=== PATIENT | female | born 1955 | race Caucasian/White ===

== ENCOUNTER 2018-04-16 09:00 | Inpatient (IN) ==
--- NOTE | 2018-01-26 10:45 | PAT Medication Instructions ---
Medication Instructions Date of Service January 26, 2018 Home Medications Sulfa Crystals 1 dose PO DAILY clonazepam 1 mg PO BID esomeprazole magnesium [Nexium] 40 mg PO QAM folic acid 1 mg PO QAM modafinil 200 mg PO QAM rosuvastatin [Crestor] 10 mg PO HS verapamil 80 mg PO BID etanercept [Enbrel SureClick] 50 mg SUBCUT WK STOP taking 2 weeks before surgery Sulfa Crystals 1 dose PO DAILY etanercept [Enbrel SureClick] 50 mg SUBCUT WK DO NOT take the morning of surgery folic acid 1 mg PO QAM modafinil 200 mg PO QAM Take morning of surgery With a small sip of water, OTHERWISE NOTHING TO EAT OR DRINK AFTER MIDNIGHT: verapamil 80 mg PO BID esomeprazole magnesium [Nexium] 40 mg PO QAM clonazepam 1 mg PO BID (stop 4 hours before surgery) Take evening before surgery verapamil 80 mg PO BID rosuvastatin [Crestor] 10 mg PO HS clonazepam 1 mg PO BID Other Notes If you have any questions please call us at [phone] or [phone] or [phone] or [phone]
--- NOTE | 2018-01-27 14:39 | Anesthesiology Consultation ---
Date of Service January 27, 2018 Assessment & Plan (1) Encounter for pre-operative examination: Plan: Note sent to PCP about decreased K+ of 2.7. (01/28/18) Note received from PCP. Patient was started on KCl 20meq TID x 1 day, then 20meq daily from there on out. She is to repeat labs in 3 days. Will wait to see new test results. (02/01/18) Patient cancelled her surgery as of 02/08/18 due to illness. * Chart Review Chart Review: Patient seen in Pre Admission Testing Consults Requested none Teaching & Discussion Pre-Anesthesia Teaching/Discussion Notes: Instructed NPO after midnight before surgery, except medications with 15 cc of water. Medication instructions provided according to the PAT guidelines. History Surgery Operation Date: 02/12/18 07:45 Proposed Procedures p L5-S1 Removal of Hardware, L4-L5 Decompression and Fusion - Reddy Marcano, Height/Weight Height: 5 ft 1 in Weight: 70.6 kg Allergies Allergy/AdvReac Type Severity Reaction Status Date / Time midazolam Allergy Unknown "HYPES ME Verified 01/21/18 12:11 UP" tetanus toxoid, adsorbed Allergy Unknown "ARM Verified 01/21/18 12:11 SWELLED AND FEVER" codeine AdvReac Unknown NAUSEA Verified 01/21/18 12:11 diazepam AdvReac Unknown "GET HYPER" Verified 01/21/18 12:11 melatonin AdvReac Unknown "KEEPS ME Verified 01/21/18 12:11 AWAKE" pseudoephedrine AdvReac Unknown "BP Verified 01/21/18 12:11 ELEVATED" acetaminophen AdvReac Nausea Verified 01/21/18 12:11 Medications Home Medications Medication Instructions Recorded Confirmed Last Taken Sulfa Crystals 1 dose PO DAILY 01/21/18 Unknown clonazepam 1 mg PO BID 01/21/18 01/21/18 Unknown esomeprazole magnesium [Nexium] 40 mg PO QAM 01/21/18 01/21/18 Unknown folic acid 1 mg PO QAM 01/21/18 01/21/18 Unknown modafinil 200 mg PO QAM 01/21/18 01/27/18 Unknown rosuvastatin [Crestor] 10 mg PO HS 01/21/18 01/21/18 Unknown verapamil 80 mg PO BID 01/21/18 01/27/18 Unknown etanercept [Enbrel SureClick] 50 mg SUBCUT WK 01/27/18 01/27/18 Unknown Past Medical History Medical History Aspiration into airway Chronic back pain Degenerative disc disease LUMBAR Depression GERD (gastroesophageal reflux disease) Heart palpitations Hyperlipidemia Nausea and vomiting after administration of anesthetic agent Osteoarthritis Panic disorder Rheumatoid arthritis Past Surgical History Surgical History Fusion of spine LUMBAR History of bilateral tubal ligation History of carpal tunnel release B/L History of cholecystectomy History of dilatation and curettage History of laparoscopy LYSIS OF ADHESIVES History of repair of rotator cuff LEFT Past Anesthesia History No Hx of Anesthesia Complications (Does tend to wake up with anesthesia and has PONV) and No Family Hx of Anesthesia Complications History of PONV Yes Motion Sickness Screening History of Motion Sickness: No Social History Smoking Status: Current every day smoker tobacco type: cigarettes Smoking cigarettes per day: HX OF 1PPD X30+ YEARS Do You Dip or Chew Tobacco: No Hx Alcohol Use: No Alcohol Intake Frequency Comment: 0 Hx Substance Use: No substance use type: does not use Exercise / Class Metabolic Activity III < 4 Walking/Shop/Light housework (Limited due to pain. Able to climb FOS. Denies CP or SOB.) Review of Systems Patient denies chest pain, shortness of breath, dyspnea on exertion, reflux ( controlled by medicine), wheezing. +cough (attributes to smoking) + palpitations +joint pain (back) Physical Exam Vital Signs BP: 127/76 P: 80 R: 20 T: 98.6 SPO2: 97% on RA ENMT Thyromental Distance: < 3.5 Finger Breadths (3) Mallampati Class: II +2 tonsillar hypertrophy Neck normal visual inspection and trachea midline; neck extension not limited Respiratory normal respiratory effort Auscultation: lungs clear to auscultation bilaterally Cardiovascular Rate/Rhythm: regular rate and regular rhythm Heart Sounds: no murmur Vessels: no carotid bruit Neurologic moves all extremities Psychiatric Orientation: alert and oriented x 3 Testing Electrocardiogram Date: 01/27/18 Findings: + NSR @ (70) and + no change from (08/11/13) Chest X-Ray Date: 01/27/18 Findings: + NAD Echocardiogram Date: 09/25/17 EF: 55% Trivial tricuspid/mild pulmonic insufficiency with normal pulmonary artery pressures. Otherwise normal transthoracic echocardiogram. Cervical Spine Date: 01/27/18 FINDINGS: The cervical spine is visualized from C1 through the superior endplate of T1. There is no fracture. No subluxation. Mild disc space narrowing at C5-C6 with small endplate osteophytes. Alignment remains intact throughout flexion and extension. Prevertebral soft tissues and the atlantodens interval are intact. IMPRESSION: No fracture or subluxation within the cervical spine. Alignment remains intact throughout flexion and extension. Laboratory Results 01/27/18 15:25 01/27/18 15:25 Blood Type A Negative 01/27/18 15: Antibody Screen NEGATIVE 01/27/18 15:25 PT 10.7 Seconds (9.0-12.0) 01/27/18 15: INR 1.0 (0.9-1.1) 01/27/18 15: APTT 27.8 Seconds (21.0-31.0) 01/27/18 15:25 Urine Color Yellow 01/27/18 15:25 Urine Appearance Clear (Clear) 01/27/18 15:25 Urine pH 7.0 (4.5-7.5) 01/27/18 15:25 Ur Specific [place] 1.003 (1.000-1.030) 01/27/18 15:25 Urine Protein Negative (Negative) 01/27/18 15:25 Urine Glucose (UA) Negative (Negative) 01/27/18 15:25 Urine Ketones Negative (Negative) 01/27/18 15:25 Urine Nitrite Negative (Negative) 01/27/18 15:25 Ur Leukocyte Esterase Negative (Negative) 01/27/18 15:25
[2018-01-27 16:15] LABS: Basophils # (auto) 0.07 K/uL (0-0.2); Basophils % (auto) 0.5 %; Eosinophils # (auto) 0.11 K/uL (0-0.5); Eosinophils % (auto) 0.8 %; Hematocrit (blood only) 44.9 % (37-47); Hemoglobin 15.1 g/dL (12.0-16.0); Immature Granulocytes # (auto) 0.05 K/uL (0.00-0.02); Immature Granulocytes % (auto) 0.4 %; Lymphocytes # (auto) 3.06 K/uL (1.2-3.4); Lymphocytes % (auto) 23.3 %; Mean Corpuscular Hgb Conc 33.6 g/dL (32-36); Mean Corpuscular Volume 94.3 fL (80-100); Mean Platelet Volume 11.5 fL (7.4-10.4); Monocytes % (auto) 6.8 %; Neutrophils # (auto) 8.96 K/uL (1.4-6.5); Neutrophils % (auto) 68.2 %; Platelet Count 388 K/uL (130-400); RDW Coefficient of Variation 13.5 % (11.5-14.5); RDW Standard Deviation 46.6 fL (36.4-46.3); Red Blood Count 4.76 M/uL (4.2-5.4); White Blood Count 13.15 K/uL (4.8-10.8)
[2018-01-27 16:23] LABS: BUN Creatinine Ratio 4.9 (10-20); Calcium 9.4 mg/dl (8.5-10.1); Creatinine Clr Calc Pharmacy 54.3 ml/min; Est GFR (African American) 74.3; Est GFR (Non-African American) 64.1; Potassium 2.7 mmol/L (3.5-5.1)
[2018-01-27 16:27] LABS: Appearance Urine Clear (Clear); Bilirubin Urine Negative (Negative); Blood Urine Negative (Negative); Color Urine Yellow; Glucose Urine UA Negative (Negative); Ketones Urine Negative (Negative); Leukocyte Esterase Urine Negative (Negative); Nitrite Urine Negative (Negative); Protein Urine Negative (Negative); Specific Gravity Urine 1.003 (1.000-1.030); Urobilinogen Urine Negative (Negative)
[2018-01-27 16:31] LABS: Partial Thromboplastin Ratio 1.1; Partial Thromboplastin Time 27.8 Seconds (21.0-31.0); Prothrombin Time 10.7 Seconds (9.0-12.0)
--- NOTE | 2018-01-27 16:32 | XRay Report ---
CERVICAL SPINE 3 views with flexion and extension HISTORY: Preop, Rheumatoid Arthritis COMPARISON: None. FINDINGS: The cervical spine is visualized from C1 through the superior endplate of T1. There is no f racture. No subluxation. Mild disc space narrowing at C5-C6 with small endplate osteophytes. Alignme nt remains intact throughout flexion and extension. Prevertebral soft tissues and the atlantodens int erval are intact. IMPRESSION: No fracture or subluxation within the cervical spine. Alignment remains intact throughout flexion and extension. Electronically signed by: Osman Holman M.D. 01/27/2018 4:31 PM
--- NOTE | 2018-01-27 16:40 | XRay Report ---
XR chest Pre-admission PA/Lat CLINICAL HISTORY: 62 years-old Female presenting with preoperative assessment. TECHNIQUE: PA and lateral views of the chest were obtained. COMPARISON: 08/11/2013. FINDINGS: Cardiomediastinal silhouette normal. Lungs and pleural spaces clear. Degenerative changes of the thor acic spine. Cholecystectomy clips noted. IMPRESSION: 1. No acute cardiopulmonary disease. Electronically signed by: Estevan Miranda M.D. 01/27/2018 4:38 PM
[~2018-04-16 09:00] MED LIST: ACETAMINOPHEN 500 MG TAB PO SCH; CEFAZOLIN 1000MG 1,000 MG/7.5 ML SYR IV SCH; CeleBREX 200 MG CAP PO SCH; GABAPENTIN 300 MG x 2 PO SCH; LR 15ML/HR IV SCH
[2018-04-16] MEDS ORDERED: HYDROmorphone INJ 2 MG/ML SYR/VIAL ONE (09:46)
[2018-04-16] MEDS ORDERED: PROPOFOL IV EMULSION 10 MG/ML 20 ML VIAL IV ONE (09:47)
[2018-04-16] MEDS ORDERED: DEXAMETHASONE SOD INJ 4 MG/ML VIAL ONE (09:47)
[2018-04-16] MEDS ORDERED: NEOSTIGMINE METHYLSULFATE 1 MG/ML 10ML VIAL ONE (09:47)
[2018-04-16] MEDS ORDERED: GLYCOPYRROLATE 0.2 MG/ML VIAL ONE (09:47)
[2018-04-16] MEDS ORDERED: ONDANSETRON INJ 2 MG/ML 2 ML VIAL ONE ×2 (09:47→16:23)
[2018-04-16] MEDS ORDERED: fentaNYL citrate 100 MCG/2 ML VIAL ONE ×2 (09:47→13:46)
[2018-04-16] MEDS ORDERED: LIDOCAINE HCL 2% 2 ML VIAL/AMP(20MG/ML) INFIL ONE (09:47)
[2018-04-16] MEDS ORDERED: ROCURONIUM BROMIDE 10 MG/ML 5 ML VIAL ONE (09:47)
[2018-04-16] MEDS ORDERED: ALBUTEROL 0.083% NEBU SOLN 3 ML VIAL NEB STA (11:20)
--- NOTE | 2018-04-16 12:57 | History & Physical Bridge Note ---
Date of Service April 16, 2018 History & Physical Bridge Note I have examined the patient, reviewed the History & Physical and in the interval since the performance of the History & Physical I have noted the following changes of clinical significance: no changes noted
--- NOTE | 2018-04-16 12:58 | History & Physical Report ---
Date of Service April 16, 2018 Assessment & Plan (1) Neurogenic claudication due to lumbar spinal stenosis: Removal of hardware L5-S1 fusion L4-5 Present on Admission?: Yes History of Present Illness Chief Complaint: Back and leg pain Primary Care Provider: Landen Galdamez This is a 63-year-old female presents with chronic persistent back and leg pain. After failing extensive course of nonoperative care she would like to pursue surgical intervention. Allergies Allergy/AdvReac Type Severity Reaction Status Date / Time midazolam Allergy Unknown "HYPES ME Verified 04/16/18 10:17 UP" tetanus toxoid, adsorbed Allergy Unknown "ARM Verified 04/16/18 10:17 SWELLED AND FEVER" codeine AdvReac Unknown NAUSEA Verified 04/16/18 10:17 diazepam AdvReac Unknown "GET HYPER" Verified 04/16/18 10:17 melatonin AdvReac Unknown "KEEPS ME Verified 04/16/18 10:17 AWAKE" pseudoephedrine AdvReac Unknown "BP Verified 04/16/18 10:17 ELEVATED" acetaminophen AdvReac Nausea Verified 04/16/18 10:17 Home Medications Home Medications Medication Instructions Recorded Confirmed Type Sulfa Crystals 1 dose PO DAILY 01/21/18 04/16/18 History clonazepam 1 mg PO BID 01/21/18 04/16/18 History esomeprazole magnesium [Nexium] 40 mg PO QAM 01/21/18 04/16/18 History folic acid 1 mg PO QAM 01/21/18 04/16/18 History modafinil 200 mg PO QAM 01/21/18 04/16/18 History rosuvastatin [Crestor] 10 mg PO HS 01/21/18 04/16/18 History etanercept [Enbrel SureClick] 50 mg SUBCUT WK 01/27/18 04/16/18 History cholecalciferol (vitamin D3) 1,000 unit PO QAM 03/11/18 04/16/18 History [Vitamin D3] magnesium oxide 400 mg PO QAM 03/11/18 04/16/18 History multivitamin 1 tab PO QAM 03/11/18 04/16/18 History potassium 99 mg PO QAM 03/11/18 04/16/18 History verapamil 80 mg PO BID 03/11/18 04/16/18 History Past Med/Surg History Social History Current Living Situation: Alone Other Information That Helps Us Care for You: No Feels Safe at Home: Yes Safety Concerns: Feels Safe At This Time Smoking Status: Current every day smoker Tobacco Type: cigarettes Cigarettes per Day: HX OF 1PPD X30+ YEARS Do You Dip or Chew Tobacco: No Second Hand Exposure: No Tobacco Cessation Education Requested by Patient: No Hx Alcohol Use: No Hx Substance Use: No Beliefs That Will Affect Care: None Preferred Language: Upper Sorbian Communication Ability: Effective Chief Client Officer Required: No Physical Exam 2 Vital Signs (Past 24 Hours): Last Vital Signs Temp 37.3 C 04/16/18 10:27 Pulse 84 04/16/18 11:34 Resp 15 04/16/18 11:34 BP 121/71 04/16/18 10:27 Pulse Ox 93 04/16/18 11:34 Results & Data Medications Administered Acetaminophen (Tylenol) 1,000 mg PO PREOP BRANNON Stop: 04/16/18 18:00 Last Admin: 04/16/18 10:25 Dose: Not Given Celecoxib (Celebrex) 200 mg PO PREOP BRANNON Stop: 04/16/18 18:00 Last Admin: 04/16/18 10:24 Dose: Not Given Gabapentin (Neurontin) 600 mg PO PREOP BRANNON Stop: 04/16/18 18:00 Last Admin: 04/16/18 10:24 Dose: Not Given Lactated Ringer's (Lr) 1,000 mls @ 15 mls/hr IV .Q24H BRANNON Stop: 04/17/18 05:59 Last Admin: 04/16/18 10:24 Dose: 15 mls/hr
[2018-04-16] MEDS ORDERED: BACITRACIN INJ 50,000 UNIT VIAL ONE (13:31)
[2018-04-16] MEDS ORDERED: BUPIVACAINE/EPINEPHRINE 0.5% MPF 1:200,000 30 ML VIAL ONE (13:31)
[2018-04-16] MEDS ORDERED: ESMOLOL HCL INJ 10 MG/ML 10ML VIAL IV ONE (14:03)
[2018-04-16] MEDS ORDERED: FLOSEAL HEMOSTATIC MATRIX 10ML TOP ONE (14:20)
--- NOTE | 2018-04-16 15:15 | Operative Report ---
Post Operative Report Pre & Post Diagnosis Operation Date: 02/12/18 07:45 <No data on this case meets the specified criteria> Operation Date: 04/16/18 11:25 Pre-Op Diagnosis: Lumbar spinal stenosis with neurogenic claudication Post-Op Diagnosis: Same Procedure Operation Date: 02/12/18 07:45 <No data on this case meets the specified criteria> Operation Date: 04/16/18 11:25 Actual Procedures #1 removal of posterior instrumentation L5-S1. #2 expiration of fusion L5-S1. #3 lumbar decompression bilateral medial facetectomies and foraminotomy L3-4 L4- 5. #4 posterior spinal fusion L4-5. #5 placement posterior 5. #6 interbody fusion L4-5 per #7 placement of titanium 9 x 22 mm cage L4-5. #8 placement of local autograft in the posterior lateral gutters. 9 placement Feese collagen sponge bone mass graft and posterior gutters space. Surgeon Reddy Marcano, [employer] Programmer Analyst Shaq Chavez Estimated Blood Loss 125 Findings Consistent with Post-Op Diagnosis Specimens None Description of Procedure Patient was met with preoperatively case discussed all questions addressed. After informed consent obtained patient was taken to the operative suite underwent intubation and placed in a prone position on the Devin table on top of the Max frame. All bony prominences well-padded eyes inspected to ensure no external pressure placed upon him. This point the lumbar spine was prepped and draped in the normal sterile fashion. Sharp dissection with the assistance of Bovie cautery was performed down to and exposing the lamina and transverse processes of L4 and instrumentation at L5-S1 level bilaterally. Then proceeded to remove the hardware bilaterally explore the fusion mass noting it to be intact. Then performed a complete laminectomy of L4 and partial laminectomy of L3 including bilateral medial facetectomies and foraminotomies to address severe stenosis. Pedicle screws were then placed in L4 and L5 bilaterally with assistance of fluoroscopy and the purposes darien placed. Through a transforaminal approach on the left complete discectomy was performed in plate coated to subcortical bleeding bone and a 9 x 22 mm titanium cage filled with osteo-amp bone graft tapped in position. The rods were then compressed locked in final position bilaterally. The transverse processes of L4 and L5 bur to subcortical bleeding bone. Infuse collagen sponge mass graft local autograft placed in the posterior lateral gutters. 15 round AMADA drain inserted. Incision was then closed with 1 Vicryl fascia 2-0 Vicryl subtenons in 4-0 Monocryl for final skin closure. Steri-Strip sterile dressings placed. Patient will continue to PACU stable disc. Please note Shaq Chavez present throughout the entire procedure involved in patient positioning complex portions of the surgery and final skin closure. I attest to the content of the Intraoperative Record and any orders documented therein. Any exceptions are noted below.
--- NOTE | 2018-04-16 15:19 | Fluoroscopy Report ---
LUMBAR SPINE, INTRAOPERATIVE FLUOROSCOPY HISTORY: L4-5 decompression and fusion. L5-S1 hardware removal. FLUOROSCOPY TIME: 9 seconds. FINDINGS: Intraoperative fluoroscopy was provided for the lumbar spine. 2 fluoroscopic spot images we re obtained. Posterior decompression fusion at L4-L5 with pedicle screws and rods. The hardware is in tact. IMPRESSION: Fluoroscopy provided for a L4-5 posterior decompression and fusion. Electronically signed by: Osman Holman M.D. 04/16/2018 3:17 PM
[2018-04-16] MEDS ORDERED: ONDANSETRON INJ 2 MG/ML 2 ML VIAL IV PRN (15:57)
[2018-04-16] MEDS ORDERED: fentaNYL citrate 100 MCG/2 ML VIAL IV PRN (15:57)
--- NOTE | 2018-04-16 16:06 | Anesthesiology Progress Note ---
Date of Service April 16, 2018 Anesthesia Post Procedure Vital Signs Vital Signs: Temp Pulse Pulse Resp BP Pulse Ox 04/16/18 16:00 98.8 F 102 H 21 137/74 97 04/16/18 15:50 100 H 22 141/75 H 97 04/16/18 15:40 100 H 20 142/73 H 98 04/16/18 15:31 99.7 F H 108 H 21 146/81 H 96 04/16/18 11:34 84 15 93 04/16/18 10:27 99.1 F 79 20 121/71 94 Pain Intensity Lower Back: Pain Intensity: 1 Notes Mental Status: alert / awake / arousable and participated in evaluation Patient Amnestic to Procedure: Yes Nausea / Vomiting: adequately controlled Pain: adequately controlled Airway Patency, RR, SpO2: stable & adequate BP & HR: stable & adequate Hydration State: stable & adequate Anesthetic Complications: no major complications apparent and Pt Satisfied with anesthetic care
[2018-04-16] MEDS ORDERED: SOD PHOSPHATE/SOD BIPHOSPHATE ENEMA 132 ML BTL PR PRN (16:40)
[2018-04-16] MEDS ORDERED: BISACODYL 10 MG SUPP PR PRN (16:40)
[2018-04-16] MEDS ORDERED: LORazepam 0.5 MG TAB PO PRN (16:40)
[2018-04-16] MEDS ORDERED: ALUMINUM/MAGNESIUM SUSP 30 ML UDC PO PRN (16:40)
[2018-04-16] MEDS ORDERED: FAMOTIDINE 20 MG TAB PO PRN (16:40)
[2018-04-16] MEDS ORDERED: MAGNESIUM HYDROXIDE SUSP 30 ML UDC PO PRN (16:40)
[2018-04-16] MEDS ORDERED: DO NOT ADMINISTER PNEUMOCOCCAL VACCINE PRN (16:40)
[2018-04-16] MEDS ORDERED: DO NOT ADMINISTER FLU VACCINE PRN (16:40)
[2018-04-16] MEDS ORDERED: METOCLOPRAMIDE HCL INJ 5 MG/ML 2 ML VIAL IV PRN (16:40)
[2018-04-16] MEDS ORDERED: LORazepam 0.5 MG/1 ML VIAL IV PRN (16:40)
[2018-04-16] MEDS ORDERED: HYDROmorphone INJ 0.5 MG/0.5 ML SYR IV PRN (16:40)
[2018-04-16] MEDS ORDERED: OXYCODONE HCL IR 5 MG TAB (IMMEDIATE RELEASE) PO PRN (16:40)
[2018-04-16] MEDS ORDERED: PROMETHAZINE HCL 12.5 MG in SODIUM CHLORIDE 0.9% 50 ML IV PRN (16:40)
[2018-04-16] MEDS ORDERED: ONDANSETRON 4 MG TAB PO PRN (16:40)
[2018-04-16] MEDS: LACTATED RINGER'S 1,000 ML IV SCH (20:31)
[2018-04-16] MEDS ORDERED: clonazePAM 1 MG TAB PO SCH (21:00)
[2018-04-16] MEDS: CEFAZOLIN 2000MG 2,000 MG/15 ML SYR IV SCH (21:05)
[2018-04-16] MEDS: ROSUVASTATIN CALCIUM 10 MG TAB PO SCH (21:11)
[2018-04-16] MEDS: VERAPAMIL HCL 40 MG TAB PO SCH (21:11)
[2018-04-16] MEDS: DOCUSATE SODIUM/SENNA 50/8.6MG TAB PO SCH (21:12)
[2018-04-16] MEDS: ONDANSETRON INJ 2 MG/ML 2 ML VIAL IV PRN (23:34)
[2018-04-16] MEDS: ACETAMINOPHEN 1,000 MG/100 ML VIAL IV PRN (23:34)
[2018-04-17] MEDS: LACTATED RINGER'S 1,000 ML IV SCH ×2 (03:35→23:17)
[2018-04-17 03:42] LABS: Appearance Urine Clear (Clear); Bacteria Urine Automated Negative (Negative); Bilirubin Urine Negative (Negative); Blood Urine 3+ (Negative); Color Urine Yellow; Glucose Urine UA Negative (Negative); Ketones Urine Negative (Negative); Leukocyte Esterase Urine Negative (Negative); Nitrite Urine Negative (Negative); Protein Urine Negative (Negative); RBC Urine Automated >30 /hpf (0-4); Specific Gravity Urine 1.012 (1.000-1.030); Urobilinogen Urine Negative (Negative)
[2018-04-17 03:53] LABS: Basophils # (auto) 0.03 K/uL (0-0.2); Basophils % (auto) 0.3 %; Eosinophils # (auto) 0.03 K/uL (0-0.5); Eosinophils % (auto) 0.3 %; Hematocrit (blood only) 38.5 % (37-47); Hemoglobin 12.8 g/dL (12.0-16.0); Immature Granulocytes # (auto) 0.06 K/uL (0.00-0.02); Immature Granulocytes % (auto) 0.5 %; Lymphocytes # (auto) 1.98 K/uL (1.2-3.4); Lymphocytes % (auto) 16.8 %; Mean Corpuscular Volume 94.8 fL (80-100); Mean Platelet Volume 10.7 fL (7.4-10.4); Monocytes % (auto) 10.2 %; Neutrophils # (auto) 8.46 K/uL (1.4-6.5); Neutrophils % (auto) 71.9 %; Platelet Count 288 K/uL (130-400); RDW Coefficient of Variation 14.1 % (11.5-14.5); RDW Standard Deviation 48.9 fL (36.4-46.3); Red Blood Count 4.06 M/uL (4.2-5.4); White Blood Count 11.76 K/uL (4.8-10.8)
[2018-04-17 04:02] LABS: Mean Corpuscular Hgb Conc 33.2 g/dL (32-36)
[2018-04-17 04:10] LABS: BUN Creatinine Ratio 5.7 (10-20); Calcium 8.6 mg/dl (8.5-10.1); Creatinine Clr Calc Pharmacy 50.8 ml/min; Est GFR (African American) 68.5; Est GFR (Non-African American) 59.1
[2018-04-17] MEDS: CEFAZOLIN 2000MG 2,000 MG/15 ML SYR IV SCH (06:01)
[2018-04-17] MEDS: POLYETHYLENE (MIRALAX) 17 GM PACK PO SCH ×4 (06:10→23:17)
--- NOTE | 2018-04-17 06:26 | XRay Report ---
XR chest 1V portable HISTORY: 63 years-old Female pt requiring oxygen to maintain sats acute shortness of breath COMPARISON: Chest radiograph 01/27/2018 TECHNIQUE: Portable AP view of the chest FINDINGS: Cardiomediastinal and hilar silhouettes appear unchanged. Calcification the thoracic aortic arch. No pneumothorax, pleural effusion, or overt pulmonary edema. Subsegmental left basilar opacities are not ed with blunting of the left costophrenic angle. Degenerative changes are seen about the shoulders an d spine. IMPRESSION: Subsegmental left basilar opacities are noted with blunting of the the left costophrenic angle sugges tive of probable atelectasis. Pneumonitis considered less likely. The above report was generated using voice recognition software. It may contain grammatical, syntax o r spelling errors. Electronically signed by: Berto Chapman M.D. 04/17/2018 6:25 AM
[2018-04-17] MEDS: CHOLECALCIFEROL 1,000 UNITS TAB PO SCH (08:44)
[2018-04-17] MEDS: VERAPAMIL HCL 40 MG TAB PO SCH ×2 (08:44→21:40)
[2018-04-17] MEDS: PANTOprazole 40 MG TAB PO SCH (08:44)
[2018-04-17] MEDS: MULTIVITAMIN TAB PO SCH (08:44)
[2018-04-17] MEDS: MAGNESIUM OXIDE 400 MG TAB PO SCH (08:44)
[2018-04-17] MEDS: FOLIC ACID 1 MG TAB PO SCH (08:44)
[2018-04-17] MEDS: MODAFINIL 100 MG TAB PO SCH (08:45)
[2018-04-17] MEDS ORDERED: clonazePAM 1 MG TAB PO SCH ×2 (09:00→14:00)
[2018-04-17] MEDS ORDERED: [UNRECOGNIZED DRUG - OTHER] PO SCH (09:00)
[2018-04-17] MEDS ORDERED: NON-FORMULARY MEDICATION (Potassium [Potassium] 99 MG) PO SCH (09:00)
--- NOTE | 2018-04-17 10:35 | Orthopedic Progress Note ---
Addendum entered and electronically signed by Alannah Kumari PA-C 04/17/18 10: 40: Addendum (Blank) Addendum April 17, 2018 10:40 Original Note: Date of Service April 17, 2018 Assessment & Plan (1) Neurogenic claudication due to lumbar spinal stenosis: At this point in time currently undergoing a workup including labs and now will order chest CT due to her postoperative temperatures. Have consulted the [facility] physician group hospitalist team to help provide medical management. Maintain AMADA drain. Supervising Physician Co-Signing Physician Notes Dr. Reddy Rivera Ashleigh is postoperative day 1 removal since rotation L5-S1 and posterior lumbar decompression fusion L4-5. She has had a postoperative fever. T-max is 38.9. This morning is 37.9. She is also tachycardic with pulse at 109 this morning. She denies radicular leg pain. States back pain is her only source of pain. Denies shortness of breath or chest pain. States she has been up and ambulatory around the room. H&H are 12.8 and 30 5.5 respectively. AMADA drain output last shift was 85 cc. Physical Exam 2 Vital Signs (Past 24 Hours): Last Vital Signs Temp 37.9 C H 04/17/18 07:22 Pulse 109 H 04/17/18 07:22 Resp 19 04/17/18 07:22 BP 138/80 04/17/18 07:22 Pulse Ox 94 04/17/18 07:22 Physical Exam: She is lying in bed. Somewhat pale. No obvious distress. Lumbar dressing is clean dry and intact. Strength is intact bilateral lower extremities. Constitutional: + thin Eyes: normal visual rojas by confrontation ENMT: external ear and nose normal, oropharynx normal Neck: normal visual inspection Respiratory: normal respiratory effort Cardiovascular: Rate/Rhythm: regular rate Extremities: normal capillary refill Gastrointestinal (Abdomen): Inspection/Auscultation: abdomen normal to inspection Musculoskeletal: no cyanosis or clubbing, extremities motor strength 5/5 Skin: no rashes, warm and dry Neurologic: patellar DTR's 2+ bilat, sensation intact normal touch/pain/ proprioception and deep tendon reflexes 2+ bilaterally Psychiatric: Orientation: alert and oriented x 3
--- NOTE | 2018-04-17 11:26 | CT Scan Report ---
CT chest wo con CT DOSE: 219.26 mGy.cm CLINICAL HISTORY: 63 years-old Female with post op fevers. Postoperative fever. Recent back surgery. TECHNIQUE: Multiaxial CT images of the chest were performed without contrast. A dose lowering techni que was utilized adhering to the principles of ALARA. COMPARISON: Chest radiograph of same day. FINDINGS: Multinodular thyroid. Heart is normal in size without pericardial effusion. Mild degree of coronary a rterial calcifications are noted. No thoracic aortic aneurysm. Trace pleural effusions. There is no pneumothorax. Mild bilateral bronchial wall thickening. Linear bibasilar subsegmental con solidative and groundglass densities. 2 mm solid nodule of the superior segment left lower lobe, like ly benign. Minimal tree-in-bud nodules with groundglass densities of the superior segment left lower lobe. There is a linear subpleural 6 mm nodule about the right middle lobe on image 153 series 4 whic h favors a fissural lymph node. No suspicious pulmonary nodules or masses identified. The central air ways appear patent. No lobar airspace consolidation. Suggestion of mild hepatic steatosis. No acute process of the imaged upper abdomen. Prior cholecystec hetal. Soft tissues are unremarkable. Bones appear to be intact. IMPRESSION: 1. Trace bilateral pleural effusions with linear bibasilar subsegmental consolidation suggestive of p robable atelectasis. 2. Minimal tree-in-bud nodules of the superior segment left lower lobe suggestive of infectious or in flammatory bronchiolitis. 3. Coronary arterial calcifications. 4. Prior cholecystectomy. Electronically signed by: Berto Chapman M.D. 04/17/2018 11:25 AM
[2018-04-17] MEDS: TRAMADOL HCL 50 MG TABLET PO PRN ×2 (13:04→13:43)
--- NOTE | 2018-04-17 13:16 | Internal Medicine Consult Note ---
Date of Consultation April 17, 2018 Assessment & Plan (1) Fever: Patient has temperature of 38+ Celsius. She has no focal signs. CT scan suggest possible tree-in-bud opacities. She will be started on Zosyn therapy for possible healthcare associated pneumonia. Urine cultures currently pending as well as blood cultures (2) Neurogenic claudication due to lumbar spinal stenosis: Patient had lumbar spinal surgery surgical site feels less painful than yesterday will expect the site of her fever continues while on antibiotics (3) Rheumatoid arthritis: Patient typically takes Enbrel for rheumatoid arthritis however this is been on hold for 3 weeks History of Present Illness Attending Physician: Reddy Marcano, DO History of Present Illness Patient has some postoperative back pain she says her lower extremity neuropathy has improved dramatically. Medicine has been consulted because of his fairly significant fever that occurred over the last 24 hours. Other than the back pain the patient has really no new focal complaints or symptoms. She does have a cough but she says it is very typical to her for her smoker's cough to have coughing such as this. She does not have any urinary complaints although she says she typically does not feel dysuria with urinary tract infection Aron however she does feel suprapubic fullness which she does not feel at this time. A CT scan was ordered by orthopedics which only showed some very minor tree-in-bud opacities Allergies Allergy/AdvReac Type Severity Reaction Status Date / Time midazolam Allergy Unknown "HYPES ME Verified 04/16/18 10:17 UP" tetanus toxoid, adsorbed Allergy Unknown "ARM Verified 04/16/18 10:17 SWELLED AND FEVER" codeine AdvReac Unknown NAUSEA Verified 04/16/18 10:17 diazepam AdvReac Unknown "GET HYPER" Verified 04/16/18 10:17 melatonin AdvReac Unknown "KEEPS ME Verified 04/16/18 10:17 AWAKE" pseudoephedrine AdvReac Unknown "BP Verified 04/16/18 10:17 ELEVATED" acetaminophen AdvReac Nausea Verified 04/16/18 10:17 Home Medications Home Medications Medication Instructions Recorded Confirmed Type Sulfa Crystals 1 dose PO DAILY 01/21/18 04/16/18 History clonazepam 1 mg PO BID 01/21/18 04/16/18 History esomeprazole magnesium [Nexium] 40 mg PO QAM 01/21/18 04/16/18 History folic acid 1 mg PO QAM 01/21/18 04/16/18 History modafinil 200 mg PO QAM 01/21/18 04/16/18 History rosuvastatin [Crestor] 10 mg PO HS 01/21/18 04/16/18 History etanercept [Enbrel SureClick] 50 mg SUBCUT WK 01/27/18 04/16/18 History cholecalciferol (vitamin D3) 1,000 unit PO QAM 03/11/18 04/16/18 History [Vitamin D3] magnesium oxide 400 mg PO QAM 03/11/18 04/16/18 History multivitamin 1 tab PO QAM 03/11/18 04/16/18 History potassium 99 mg PO QAM 03/11/18 04/16/18 History verapamil 80 mg PO BID 03/11/18 04/16/18 History Patient History Social History Current Living Situation: Alone Other Information That Helps Us Care for You: No Feels Safe at Home: Yes Safety Concerns: Feels Safe At This Time Smoking Status: Current every day smoker Tobacco Type: cigarettes Cigarettes per Day: HX OF 1PPD X30+ YEARS Do You Dip or Chew Tobacco: No Second Hand Exposure: No Tobacco Cessation Education Requested by Patient: No Hx Alcohol Use: No Hx Substance Use: No Beliefs That Will Affect Care: None Communication Ability: Effective Review of Systems ROS: No double vision blurry vision No problems with speech or swallowing No palpitations, chest pain or pressure No Wheezing or breathing issues chronic daily cough unchanged No abdominal pain nausea vomiting diarrhea changes in appetite or weight No burning urine urine frequency or changes in color No focal joint pain or muscle pain No skin rashes or oral lesions No unusual bruising or bleeding No focused back pain or numbness or loss of strength No changes in memory or confusion Physical Exam 2 Vital Signs (Past 24 Hours): Last Vital Signs Temp 38.6 C H 04/17/18 11:56 Pulse 105 H 04/17/18 11:56 Resp 20 04/17/18 11:56 BP 144/78 H 04/17/18 11:56 Pulse Ox 96 04/17/18 11:56 The patient appeared well nourished and normally developed. Vital signs as documented. Head exam is unremarkable. normocephalic, atraumatic Neck is without jugular venous distension, thyromegaly, or lymphademopathy Lungs are clear to auscultation and percussion. Cardiac exam reveals Rhythm is regular. First and second heart sounds normal. Abdominal exam reveals normal bowel sounds, no masses, no organomegaly Extremities are nonedematous and both pedal pulses are present Neurologic exam is A&Ox3, no focal deficits, strength is equal bilateral Psychologically seems neither anxious or depressed Skin is warm Dry without bruises or lesions, surgical site is a dressing in place typically surgery is not wish for the dressing to be disturbed however fever does continue we will inspect the site tomorrow
[2018-04-17] MEDS ORDERED: PIPERACILL/TAZOBAC CONSULT ACTIVE PRN (13:17)
[2018-04-17] MEDS ORDERED: PIPERACILLIN/TAZOBACTAM 4.5 GM in DEXTROSE 5% 100 ML IV STA (13:17)
[2018-04-17] MEDS ORDERED: PIPERACILLIN/TAZOBACTAM 3.375 GM in DEXTROSE 5% 100 ML IV ONE (14:00)
[2018-04-17] MEDS: ACETAMINOPHEN 1,000 MG/100 ML VIAL IV PRN (16:26)
[2018-04-17] MEDS: ONDANSETRON INJ 2 MG/ML 2 ML VIAL IV PRN (16:26)
[2018-04-17] MEDS: PIPERACILLIN/TAZOBACTAM 3.375 GM in DEXTROSE 5% 100 ML IV SCH (20:48)
[2018-04-17] MEDS: DOCUSATE SODIUM/SENNA 50/8.6MG TAB PO SCH (20:56)
[2018-04-17] MEDS: ROSUVASTATIN CALCIUM 10 MG TAB PO SCH (21:40)
[2018-04-17] MEDS: clonazePAM 1 MG TAB PO SCH (21:40)
[2018-04-18] MEDS: PIPERACILLIN/TAZOBACTAM 3.375 GM in DEXTROSE 5% 100 ML IV SCH ×3 (04:52→20:38)
[2018-04-18] MEDS: POLYETHYLENE (MIRALAX) 17 GM PACK PO SCH ×3 (04:52→18:27)
[2018-04-18] MEDS: ONDANSETRON INJ 2 MG/ML 2 ML VIAL IV PRN ×2 (05:12→18:31)
[2018-04-18] MEDS: ACETAMINOPHEN 1,000 MG/100 ML VIAL IV PRN ×2 (05:12→21:56)
[2018-04-18 05:55] LABS: Creatinine Clr Calc Pharmacy 46.2 ml/min; Est GFR (Non-African American) 52.6
[2018-04-18] MEDS: PANTOprazole 40 MG TAB PO SCH (08:59)
[2018-04-18] MEDS: CHOLECALCIFEROL 1,000 UNITS TAB PO SCH (08:59)
[2018-04-18] MEDS: FOLIC ACID 1 MG TAB PO SCH (08:59)
[2018-04-18] MEDS: VERAPAMIL HCL 40 MG TAB PO SCH ×2 (08:59→20:39)
[2018-04-18] MEDS: MULTIVITAMIN TAB PO SCH (08:59)
[2018-04-18] MEDS: MAGNESIUM OXIDE 400 MG TAB PO SCH (08:59)
[2018-04-18] MEDS: MODAFINIL 100 MG TAB PO SCH (09:00)
[2018-04-18] MEDS: clonazePAM 1 MG TAB PO SCH ×2 (09:01→20:38)
--- NOTE | 2018-04-18 10:19 | Orthopedic Progress Note ---
Date of Service April 18, 2018 Assessment & Plan (1) Fever: See chest CT results. Currently on Zosyn. Is improving over the past 24 hours. Blood cultures pending Urine culture pending (2) Neurogenic claudication due to lumbar spinal stenosis: She will continue with physical therapy today. To continue on antibiotics per medical team. Maintain AMADA drain. DVT prophylaxis is in the form of teds and SCDs. Hopefully discharge home within the next 24-48 hours. Currently awaiting blood culture and urine culture results Supervising Physician Co-Signing Physician Notes Dr. Reddy Marcano Miguel Sotelo is postoperative day 2 removal of his rotation L5-S1 decompression fusion of L4-5. Only complaint is of back pain. Also has coughing but states she had this preoperatively. She reports she was diagnosed with bronchitis in January which is why she had to postpone her surgery originally. AMADA drain output last shift was 40 cc. She denies radicular leg pain. Temp is improving. This morning is 37.3. Pulse is down to 89. Chest CT scan was performed yesterday due to tachycardia and temperature postop. It revealed tree-in-bud opacities and bronchiolitis and atelectasis. She is now on Zosyn Physical Exam 2 Vital Signs (Past 24 Hours): Last Vital Signs Temp 37.3 C 04/18/18 07:36 Pulse 89 04/18/18 07:36 Resp 19 04/18/18 07:36 BP 108/67 04/18/18 07:36 Pulse Ox 94 04/18/18 07:36 Physical Exam: She sitting on the edge of the bed. No obvious distress. Strength is intact bilateral lower extremities. Lumbar dressing is clean dry and intact. Alert and oriented x3. Constitutional: WD/WN, vitals as above Eyes: normal visual rojas by confrontation ENMT: external ear and nose normal, oropharynx normal Neck: normal visual inspection Respiratory: normal respiratory effort Cardiovascular: Rate/Rhythm: regular rate Extremities: normal capillary refill Gastrointestinal (Abdomen): Inspection/Auscultation: abdomen normal to inspection Musculoskeletal: no cyanosis or clubbing, extremities motor strength 5/5 Extremities: extremities normal to inspection Skin: no rashes, warm and dry Neurologic: normal touch/pain/proprioception, CN's II-XI intact bilaterally and deep tendon reflexes 2+ bilaterally Psychiatric: A+Ox3, euthymic affect Eye Contact: good eye contact Results & Data Diagnostic Findings Patient: SONYA PEARL Date: 04/16/18 MR#: [id number]: [address] Acct ID:[id number]: [facility] [place] [address] Age: 63Location: 3E Sex: F Room/Bed: [facility] Att Phy: Reddy Marcano D.O.Diagnosis: Spinal Stenosis Sima Phy: Landen Galdamez M.D.Service Date: 04/17/18 Fam Phy: Interpreting Phy: Dwight Chapman Admit Phy: Reddy Marcano D.O. Ordering Phy: Alannah Kumari cc: ~ CT chest wo con CT DOSE: 219.26 mGy.cm CLINICAL HISTORY: 63 years-old Female with post op fevers. Postoperative fever. Recent back surgery. TECHNIQUE: Multiaxial CT images of the chest were performed without contrast. A dose lowering technique was utilized adhering to the principles of ALARA. COMPARISON: Chest radiograph of same day. FINDINGS: Multinodular thyroid. Heart is normal in size without pericardial effusion. Mild degree of coronary arterial calcifications are noted. No thoracic aortic aneurysm. Trace pleural effusions. There is no pneumothorax. Mild bilateral bronchial wall thickening. Linear bibasilar subsegmental consolidative and groundglass densities. 2 mm solid nodule of the superior segment left lower lobe, likely benign. Minimal tree-in- bud nodules with groundglass densities of the superior segment left lower lobe. There is a linear subpleural 6 mm nodule about the right middle lobe on image 153 series 4 which favors a fissural lymph node. No suspicious pulmonary nodules or masses identified. The central airways appear patent. No lobar airspace consolidation. Suggestion of mild hepatic steatosis. No acute process of the imaged upper abdomen. Prior cholecystectomy. Soft tissues are unremarkable. Bones appear to be intact. IMPRESSION: 1. Trace bilateral pleural effusions with linear bibasilar subsegmental consolidation suggestive of probable atelectasis. 2. Minimal tree-in-bud nodules of the superior segment left lower lobe suggestive of infectious or inflammatory bronchiolitis. 3. Coronary arterial calcifications. 4. Prior cholecystectomy. Electronically signed by: Berto Chapman M.D. 04/17/2018 11:25 AM
--- NOTE | 2018-04-18 14:32 | Hospitalist Progress Note ---
Date of Service April 18, 2018 Assessment & Plan (1) Fever: Patient is continued temperatures improved coughing, CT scan suggest possible tree-in-bud opacities. Zosyn therapy for possible healthcare associated pneumonia. Urine cultures currently pending as well as blood cultures (2) Neurogenic claudication due to lumbar spinal stenosis: Patient had lumbar spinal surgery surgical site continues to improve (3) Rheumatoid arthritis: Patient typically takes Enbrel for rheumatoid arthritis however this is been on hold for 3 weeks Subjective Patient still had fever overnight she says she feels much better her cough is actually improving and her back pain is also improving Review of Systems ROS: well nourished well developed. No double vision blurry vision No problems with speech or swallowing No palpitations, chest pain or pressure No Wheezing or breathing issues still occasional coughing No abdominal pain nausea vomiting diarrhea changes in appetite or weight No burning urine urine frequency or changes in color No focal joint pain or muscle pain No skin rashes or oral lesions No unusual bruising or bleeding Daily improving back pain with improved numbness and strength No changes in memory or confusion Physical Exam 2 Vital Signs (Past 24 Hours): Last Vital Signs Temp 37.3 C 04/18/18 07:36 Pulse 89 04/18/18 07:36 Resp 19 04/18/18 07:36 BP 108/67 04/18/18 07:36 Pulse Ox 94 04/18/18 13:05 The patient appeared well nourished and normally developed. Vital signs as documented. Head exam is unremarkable. normocephalic, atraumatic Neck is without jugular venous distension, thyromegaly, or lymphademopathy Lungs are clear to auscultation and percussion. Cardiac exam reveals Rhythm is regular. First and second heart sounds normal. Abdominal exam reveals normal bowel sounds, no masses, no organomegaly Extremities are nonedematous and both pedal pulses are present Neurologic exam is A&Ox3, no focal deficits, strength is equal bilateral Psychologically seems neither anxious or depressed Skin is warm Dry without bruises or lesions
[2018-04-18] MEDS: TRAMADOL HCL 50 MG TABLET PO PRN (18:26)
[2018-04-18] MEDS: DOCUSATE SODIUM/SENNA 50/8.6MG TAB PO SCH (20:37)
[2018-04-18] MEDS: ROSUVASTATIN CALCIUM 10 MG TAB PO SCH (20:39)
[2018-04-19] MEDS: POLYETHYLENE (MIRALAX) 17 GM PACK PO SCH ×5 (00:58→23:23)
[2018-04-19] MEDS: PIPERACILLIN/TAZOBACTAM 3.375 GM in DEXTROSE 5% 100 ML IV SCH ×3 (03:21→19:52)
[2018-04-19 06:51] LABS: Creatinine Clr Calc Pharmacy 42.4 ml/min; Est GFR (African American) 54.9; Est GFR (Non-African American) 47.4
[2018-04-19] MEDS: ACETAMINOPHEN 1,000 MG/100 ML VIAL IV PRN ×2 (07:13→23:52)
[2018-04-19] MEDS: ONDANSETRON INJ 2 MG/ML 2 ML VIAL IV PRN ×2 (07:17→23:56)
[2018-04-19] MEDS ORDERED: VANCOMYCIN CONSULT ACTIVE PRN (07:25)
--- NOTE | 2018-04-19 07:45 | XRay Report ---
XR chest 1V portable CLINICAL HISTORY: fever, cough COMPARISON STUDY: April 17, 2018 FINDINGS: The cardiac and mediastinal contours are normal. There is no evidence of focal pulmonary co nsolidation. There is no evidence of failure. No pleural effusions are visualized.[ IMPRESSION: No active disease in the chest. Electronically signed by: Bob Guillen M.D. 04/19/2018 7:44 AM
[2018-04-19] MEDS ORDERED: VANCOMYCIN HCL 1,750 MG in SODIUM CHLORIDE 0.9% 500 ML IV SCH (08:00)
[2018-04-19 08:23] LABS: Basophils # (auto) 0.02 K/uL (0-0.2); Basophils % (auto) 0.2 %; Eosinophils # (auto) 0.13 K/uL (0-0.5); Eosinophils % (auto) 1.2 %; Hematocrit (blood only) 37.4 % (37-47); Hemoglobin 12.2 g/dL (12.0-16.0); Immature Granulocytes # (auto) 0.04 K/uL (0.00-0.02); Immature Granulocytes % (auto) 0.4 %; Lymphocytes # (auto) 1.95 K/uL (1.2-3.4); Lymphocytes % (auto) 18.7 %; Mean Corpuscular Hgb Conc 32.6 g/dL (32-36); Mean Corpuscular Volume 95.7 fL (80-100); Mean Platelet Volume 11.1 fL (7.4-10.4); Monocytes # (auto) 1.44 K/uL (0.11-0.59); Monocytes % (auto) 13.8 %; Neutrophils # (auto) 6.85 K/uL (1.4-6.5); Neutrophils % (auto) 65.7 %; Platelet Count 300 K/uL (130-400); RDW Coefficient of Variation 14.1 % (11.5-14.5); RDW Standard Deviation 49.3 fL (36.4-46.3); Red Blood Count 3.91 M/uL (4.2-5.4); White Blood Count 10.43 K/uL (4.8-10.8)
[2018-04-19 08:29] LABS: Albumin Level 2.6 gm/dl (3.4-5.0); BUN Creatinine Ratio 7.5 (10-20); Bilirubin Direct 0.2 mg/dl (0-0.2); Calcium 9.2 mg/dl (8.5-10.1); Creatinine Clr Calc Pharmacy 42.4 ml/min; Est GFR (African American) 54.9; Est GFR (Non-African American) 47.4; Potassium 3.9 mmol/L (3.5-5.1)
[2018-04-19 08:31] LABS: Bilirubin,Total 0.5 mg/dl (0.2-1); Total Protein 6.7 gm/dl (6.4-8.2)
[2018-04-19] MEDS: VERAPAMIL HCL 40 MG TAB PO SCH ×2 (08:39→20:01)
[2018-04-19] MEDS: MULTIVITAMIN TAB PO SCH (08:39)
[2018-04-19] MEDS: MAGNESIUM OXIDE 400 MG TAB PO SCH (08:40)
[2018-04-19] MEDS: PANTOprazole 40 MG TAB PO SCH (08:40)
[2018-04-19] MEDS: FOLIC ACID 1 MG TAB PO SCH (08:40)
[2018-04-19] MEDS: CHOLECALCIFEROL 1,000 UNITS TAB PO SCH (08:40)
[2018-04-19] MEDS: SODIUM CHLORIDE 0.9% 1000ML 1,000 ML IV SCH ×3 (08:43→23:21)
[2018-04-19] MEDS: TRAMADOL HCL 50 MG TABLET PO PRN (08:45)
[2018-04-19] MEDS: clonazePAM 1 MG TAB PO SCH ×2 (08:45→20:01)
[2018-04-19] MEDS: MODAFINIL 100 MG TAB PO SCH (08:46)
--- NOTE | 2018-04-19 09:11 | Pharmacy Report ---
Pharmacy Abx Initial Consult - Date of Service April 19, 2018 - Pharmacy Dosing Scope Date of Consult: 04/19/18 Consultation requested by: Dr. Treviño Pharmacy is consulted to initiate vancomcyin IV dosing therapy, order appropriate labs and adjust drug dose/frequency. Pharmacy is already consulted for Zosyn dosing. - Subjective The patient is a 63 year old F admitted on 04/16/18 15:20. - Objective Height: 5 ft 1 in Weight: 71.8 kg Vital Signs (Past 12hrs): Vital Signs Temp Pulse Resp BP Pulse Ox 04/19/18 07:05 39.4 C H 116 H 18 135/71 98 04/18/18 23:05 38.4 C H 94 H 18 100/60 93 04/18/18 21:55 38.8 C H Lab Results (24hrs): Laboratory Tests (24 Hours) 04/19/18 04/19/18 04/19/18 07:48 05:53 05:53 WBC 10.43 Neut # (Auto) 6.85 H Creatinine 1.20 Est Cr Clr Drug Dosing 42.4 Procalcitonin 0.27 04/19/18 05:49 WBC Neut # (Auto) Creatinine 1.20 Est Cr Clr Drug Dosing 42.4 Procalcitonin Micro Results: 04/17/18 11:15 Urine Culture - Final Urine,Indwelling Cath No growth - less than 1,000 colonies/mL. 04/19/18 07:48 Blood Culture - Pending Blood 04/19/18 07:58 Blood Culture - Pending Blood - Risk Factors for Resistance * Immunocompromised (immunomodulators) * Antimicrobial use within the last 90 days : currently on Zosyn - Assessment & Plan Assessment 63 year old F admitted on 04/16 for decompression/fusion. She had postop fevers and was initiated on Zosyn on 04/17 for presumed pulmonary infection. Blood and urine cultures drawn 04/17 are negative. Patient has continued with fevers and now vancomycin is being added for MRSA coverage. MRSA swab, procal and new set of blood cultures are being done today. Plan Vancomycin IV * Estimated PK Parameters: Vd 0.7 L/kg, Martin 0.039 hr-1, t1/2 17.8 hr * Loading dose: 1750 mg (25 mg/kg) * Maintenance dose: 1000 mg IV (14 mg/kg) every 20 hours * Goal trough level: 15 to 20 mcg/mL * Trough level ordered for 04/21/18 prior to the 4th dose * Will need to watch SCr closely now that vancomycin has been added to Zosyn. SCr has risen slightly over the past few days. Piperacillin/tazobactam * Continue 3.375 g IV extended infusion every 8 hours for CrCl greater than 20 mL/min Pharmacy will continue to follow and will adjust dose/frequency as necessary. Thank you.
--- NOTE | 2018-04-19 13:44 | Orthopedic Progress Note ---
Date of Service April 19, 2018 Assessment & Plan (1) Neurogenic claudication due to lumbar spinal stenosis: Patient is doing well from a postoperative neurologic standpoint. However she continues to spike temperatures and her concern regarding persistent lung disease. He is currently on IV antibiotics. Present on Admission?: Yes Subjective Patient's back pain is controlled leg pain markedly improved. Physical Exam 2 Vital Signs (Past 24 Hours): Last Vital Signs Temp 37.0 C 04/19/18 11:44 Pulse 77 04/19/18 11:44 Resp 16 04/19/18 11:44 BP 112/65 04/19/18 11:44 Pulse Ox 98 04/19/18 11:44 Physical Exam: On exam she is in the chair at the bedside. She is good strength testing. Back pain is controlled.
--- NOTE | 2018-04-19 18:42 | Hospitalist Progress Note ---
Date of Service April 19, 2018 Assessment & Plan (1) Fever: Continues with fevers now times almost 3 days, leukocytosis is resolved now, tachycardia comes on with fevers---> sepsis with pneumonia most likely source Blood cultures remain no growth to date Urinalysis without evidence of infection and urine culture is negative Has been on Zosyn now and will add vancomycin for broader coverage It does not appear that she has any wound infection in fact her pain in the back is improved There is no evidence of DVT CT chest scan suggest possible tree-in-bud opacities which would likely be consistent with an aspiration pneumonitis in the superior segment of the lower lobe. Patient has a long history she says of aspiration and has had a video swallow test it seemed and was recommended to have speech therapy which her insurance would not cover -Continue Zosyn and vancomycin for now No other source found at this time but will check a flu swab (2) Neurogenic claudication due to lumbar spinal stenosis: Patient had lumbar spinal surgery surgical site continues to improve Postoperative care as per orthopedic surgery (3) Rheumatoid arthritis: Patient typically takes Enbrel for rheumatoid arthritis however this is been on hold for 3 weeks-continue to hold (4) Hyperlipidemia: Continue statin drug (5) Aspiration pneumonitis: With sepsis as above -Continue antibiotics -Continue IV fluids which were started today (6) GERD (gastroesophageal reflux disease): Continue PPI (7) Anxiety: Continue clonazepam (8) HTN (hypertension), benign: Controlled -Continue verapamil (9) Acute respiratory failure with hypoxia: Remains on 2 L nasal cannula-likely related to her aspiration pneumonitis but does have some wheezing on exam -Start albuterol nebs now and as needed -Wean from oxygen as able to (10) DVT prophylaxis: SCDs Disposition-remain on medical/surgical floor Subjective Patient continued to spike fevers this morning. She denies any chills. Denies headache or facial pressure or sinus congestion, denies sore throat, has very minimal cough. Denies productive cough. Denies chest pain or shortness of breath, denies abdominal pain or dysuria. Feels that her back pain is improved from previous. Review of Systems All systems reviewed & are unremarkable except as noted in HPI & below Physical Exam 2 Vital Signs (Past 24 Hours): Last Vital Signs Temp 37.2 C 04/19/18 15:09 Pulse 83 04/19/18 15:09 Resp 18 04/19/18 15:09 BP 108/65 04/19/18 15:09 Pulse Ox 97 04/19/18 15:09 Constitutional: WD/WN, vitals as above Eyes: PERRL, conjunctivae normal, anicteric sclerae ENMT: external ear and nose normal, oropharynx normal Neck: trachea midline, no thyromegaly Respiratory: normal respiratory effort, lungs clear to auscultation Cardiovascular: RRR, no murmur, no edema Gastrointestinal (Abdomen): normal bowel sounds, soft, nontender, no hepatosplenomegaly Musculoskeletal: Extremities: extremities normal to inspection; no cyanosis and no clubbing Skin: no rashes, warm and dry (Dressing of the lower spine is clean dry and intact, no surrounding erythema) Neurologic: moves all extremities and awake; no focal motor deficits Psychiatric: A+Ox3, euthymic affect Results & Data Laboratory Results 04/19/18 04/19/18 04/19/18 Range/Units 10:00 07:48 05:53 WBC (4.8-10.8) K/uL RBC (4.2-5.4) M/uL Hgb (12.0-16.0) g/dL Hct (37-47) % MCV (80-100) fL MCH (25-34) pg MCHC (32-36) g/dL RDW Std Deviation (36.4-46.3) fL RDW Coeff of August (11.5-14.5) % Plt Count (130-400) K/uL MPV (7.4-10.4) fL Immature Gran % (Auto) % Neut % (Auto) % Lymph % (Auto) % Ray % (Auto) % Eos % (Auto) % Baso % (Auto) % Immature Gran # (Auto) (0.00-0.02) K/uL Neut # (Auto) (1.4-6.5) K/uL Lymph # (Auto) (1.2-3.4) K/uL Ray # (Auto) (0.11-0.59) K/uL Eos # (Auto) (0-0.5) K/uL Baso # (Auto) (0-0.2) K/uL Sodium 136 (136-145) mmol/L Potassium 3.9 (3.5-5.1) mmol/L Chloride 99 (98-107) mmol/L Carbon Dioxide 32 (21-32) mmol/L Anion Gap 5.0 (3-11) BUN 9 (7-18) mg/dl Creatinine 1.20 (0.6-1.2) mg/dl Est Cr Clr Drug Dosing 42.4 ml/min Est GFR ( Amer) 54.9 Est GFR (Non-Af Amer) 47.4 BUN/Creatinine Ratio 7.5 L (10-20) Glucose 97 (70-99) mg/dl Calcium 9.2 (8.5-10.1) mg/dl Magnesium 2.0 (1.8-2.4) mg/dl Total Bilirubin 0.5 (0.2-1) mg/dl Direct Bilirubin 0.2 (0-0.2) mg/dl AST 45 H (15-37) U/L ALT 65 (12-78) U/L Alkaline Phosphatase 183 H (45-117) U/L Total Protein 6.7 (6.4-8.2) gm/dl Albumin 2.6 L (3.4-5.0) gm/dl Procalcitonin 0.27 (0-0.5) ng/ml Nasal Screen MRSA (PCR) Negative (Negative) 04/19/18 04/19/18 Range/Units 05:53 05:49 WBC 10.43 (4.8-10.8) K/uL RBC 3.91 L (4.2-5.4) M/uL Hgb 12.2 (12.0-16.0) g/dL Hct 37.4 (37-47) % MCV 95.7 (80-100) fL MCH 31.2 (25-34) pg MCHC 32.6 (32-36) g/dL RDW Std Deviation 49.3 H (36.4-46.3) fL RDW Coeff of August 14.1 (11.5-14.5) % Plt Count 300 (130-400) K/uL MPV 11.1 H (7.4-10.4) fL Immature Gran % (Auto) 0.4 % Neut % (Auto) 65.7 % Lymph % (Auto) 18.7 % Ray % (Auto) 13.8 % Eos % (Auto) 1.2 % Baso % (Auto) 0.2 % Immature Gran # (Auto) 0.04 H (0.00-0.02) K/uL Neut # (Auto) 6.85 H (1.4-6.5) K/uL Lymph # (Auto) 1.95 (1.2-3.4) K/uL Ray # (Auto) 1.44 H (0.11-0.59) K/uL Eos # (Auto) 0.13 (0-0.5) K/uL Baso # (Auto) 0.02 (0-0.2) K/uL Sodium (136-145) mmol/L Potassium (3.5-5.1) mmol/L Chloride (98-107) mmol/L Carbon Dioxide (21-32) mmol/L Anion Gap (3-11) BUN (7-18) mg/dl Creatinine 1.20 (0.6-1.2) mg/dl Est Cr Clr Drug Dosing 42.4 ml/min Est GFR ( Amer) 54.9 Est GFR (Non-Af Amer) 47.4 BUN/Creatinine Ratio (10-20) Glucose (70-99) mg/dl Calcium (8.5-10.1) mg/dl Magnesium (1.8-2.4) mg/dl Total Bilirubin (0.2-1) mg/dl Direct Bilirubin (0-0.2) mg/dl AST (15-37) U/L ALT (12-78) U/L Alkaline Phosphatase (45-117) U/L Total Protein (6.4-8.2) gm/dl Albumin (3.4-5.0) gm/dl Procalcitonin (0-0.5) ng/ml Nasal Screen MRSA (PCR) (Negative) Blood cultures all no growth to date Urine culture no growth Diagnostic Findings Chest x-ray personally reviewed by me-negative for infiltrate
[2018-04-19] MEDS ORDERED: ALBUTEROL 0.083% NEBU SOLN 3 ML VIAL NEB STA (18:48)
[2018-04-19] MEDS ORDERED: ALBUTEROL 0.083% NEBU SOLN 3 ML VIAL NEB PRN (18:48)
[2018-04-19] MEDS: DOCUSATE SODIUM/SENNA 50/8.6MG TAB PO SCH (20:01)
[2018-04-19] MEDS: ROSUVASTATIN CALCIUM 10 MG TAB PO SCH (20:01)
[2018-04-19 20:48] LABS: Influenza A virus by PCR Neg for Influ A (Neg); Influenza B virus by PCR Neg for Influ B (Neg)
[2018-04-20] MEDS: POLYETHYLENE (MIRALAX) 17 GM PACK PO SCH ×2 (00:10→11:24)
[2018-04-20] MEDS: PIPERACILLIN/TAZOBACTAM 3.375 GM in DEXTROSE 5% 100 ML IV SCH ×2 (03:24→11:24)
[2018-04-20] MEDS ORDERED: VANCOMYCIN HCL 1,000 MG in SODIUM CHLORIDE 0.9% 250 ML IV SCH (06:00)
[2018-04-20 06:49] LABS: Creatinine Clr Calc Pharmacy 51.9 ml/min; Est GFR (African American) 70.2; Est GFR (Non-African American) 60.5
[2018-04-20] MEDS: SODIUM CHLORIDE 0.9% 1000ML 1,000 ML IV SCH ×2 (07:12→15:35)
[2018-04-20] MEDS: ACETAMINOPHEN 1,000 MG/100 ML VIAL IV PRN ×2 (07:14→20:21)
[2018-04-20] MEDS: ONDANSETRON INJ 2 MG/ML 2 ML VIAL IV PRN ×2 (07:16→20:21)
[2018-04-20] MEDS: VERAPAMIL HCL 40 MG TAB PO SCH ×2 (08:46→20:20)
[2018-04-20] MEDS: FOLIC ACID 1 MG TAB PO SCH (08:47)
[2018-04-20] MEDS: MAGNESIUM OXIDE 400 MG TAB PO SCH (08:47)
[2018-04-20] MEDS: PANTOprazole 40 MG TAB PO SCH (08:47)
[2018-04-20] MEDS: CHOLECALCIFEROL 1,000 UNITS TAB PO SCH (08:47)
[2018-04-20] MEDS: clonazePAM 1 MG TAB PO SCH ×2 (08:47→20:20)
[2018-04-20] MEDS: MULTIVITAMIN TAB PO SCH (08:47)
[2018-04-20] MEDS: MODAFINIL 100 MG TAB PO SCH (08:48)
[2018-04-20 10:29] LABS: Albumin Level 2.5 gm/dl (3.4-5.0); BUN Creatinine Ratio 7.5 (10-20); Bilirubin Direct 0.1 mg/dl (0-0.2); Calcium 8.6 mg/dl (8.5-10.1); Creatinine Clr Calc Pharmacy 48.9 ml/min; Est GFR (African American) 65.3; Est GFR (Non-African American) 56.3; Potassium 3.9 mmol/L (3.5-5.1)
[2018-04-20 10:32] LABS: Bilirubin,Total 0.4 mg/dl (0.2-1); Total Protein 6.1 gm/dl (6.4-8.2)
[2018-04-20 10:35] LABS: Basophils # (auto) 0.04 K/uL (0-0.2); Basophils % (auto) 0.5 %; Eosinophils # (auto) 0.34 K/uL (0-0.5); Eosinophils % (auto) 3.9 %; Hematocrit (blood only) 33.1 % (37-47); Hemoglobin 10.6 g/dL (12.0-16.0); Immature Granulocytes # (auto) 0.05 K/uL (0.00-0.02); Immature Granulocytes % (auto) 0.6 %; Lymphocytes # (auto) 1.78 K/uL (1.2-3.4); Lymphocytes % (auto) 20.5 %; Mean Corpuscular Volume 95.9 fL (80-100); Mean Platelet Volume 11.1 fL (7.4-10.4); Monocytes # (auto) 1.05 K/uL (0.11-0.59); Monocytes % (auto) 12.1 %; Neutrophils # (auto) 5.42 K/uL (1.4-6.5); Neutrophils % (auto) 62.4 %; Platelet Count 309 K/uL (130-400); RDW Standard Deviation 49.4 fL (36.4-46.3); Red Blood Count 3.45 M/uL (4.2-5.4); White Blood Count 8.68 K/uL (4.8-10.8)
--- NOTE | 2018-04-20 10:45 | Infectious Disease Consult ---
Date of Consultation April 20, 2018 Assessment & Plan (1) Fever: 63-year-old female status post lumbar surgery now with persistent postoperative fever without any localizing signs or symptoms. Low pro- calcitonin speaks against bacterial infection. Possibly we are dealing with atelectasis, no obvious evidence of surgical site infection. Patient to have CT scan of chest and abdomen today for further evaluation. Will continue on current antibiotics for now. Will follow. History of Present Illness Reason for Consultation: Persistent fevers Attending Physician: Reddy Marcano DO History of Present Illness 63-year-old female with history of hypertension, hyperlipidemia, rheumatoid arthritis, lumbar spinal disease underwent lumbar spinal surgery April 16 without obvious complications. Postoperatively, patient has been having persistent fevers although has felt entirely well otherwise. She has chronic cough, no significant increase in sputum production, no hemoptysis. Denies any significant worsening pain at surgical site. No abdominal pain, diarrhea, nausea or vomiting, urinary complaints. Blood cultures have been negative to date, pro-calcitonin is low. Has evidence of atelectasis on x-rays. Temperature currently 39.1, patient states she feels entirely well. Allergies Allergy/AdvReac Type Severity Reaction Status Date / Time midazolam Allergy Unknown "HYPES ME Verified 04/16/18 10:17 UP" tetanus toxoid, adsorbed Allergy Unknown "ARM Verified 04/16/18 10:17 SWELLED AND FEVER" codeine AdvReac Unknown NAUSEA Verified 04/16/18 10:17 diazepam AdvReac Unknown "GET HYPER" Verified 04/16/18 10:17 melatonin AdvReac Unknown "KEEPS ME Verified 04/16/18 10:17 AWAKE" pseudoephedrine AdvReac Unknown "BP Verified 04/16/18 10:17 ELEVATED" acetaminophen AdvReac Nausea Verified 04/16/18 10:17 Home Medications Home Medications Medication Instructions Recorded Confirmed Type Sulfa Crystals 1 dose PO DAILY 01/21/18 04/16/18 History clonazepam 1 mg PO BID 01/21/18 04/16/18 History esomeprazole magnesium [Nexium] 40 mg PO QAM 01/21/18 04/16/18 History folic acid 1 mg PO QAM 01/21/18 04/16/18 History modafinil 200 mg PO QAM 01/21/18 04/16/18 History rosuvastatin [Crestor] 10 mg PO HS 01/21/18 04/16/18 History etanercept [Enbrel SureClick] 50 mg SUBCUT WK 01/27/18 04/16/18 History cholecalciferol (vitamin D3) 1,000 unit PO QAM 03/11/18 04/16/18 History [Vitamin D3] magnesium oxide 400 mg PO QAM 03/11/18 04/16/18 History multivitamin 1 tab PO QAM 03/11/18 04/16/18 History potassium 99 mg PO QAM 03/11/18 04/16/18 History verapamil 80 mg PO BID 03/11/18 04/16/18 History Patient History Medical History Aspiration into airway Chronic back pain Degenerative disc disease LUMBAR Depression GERD (gastroesophageal reflux disease) Heart palpitations Hyperlipidemia Osteoarthritis Panic disorder Rheumatoid arthritis Surgical History Fusion of spine LUMBAR History of bilateral tubal ligation History of carpal tunnel release B/L History of cholecystectomy History of dilatation and curettage History of laparoscopy LYSIS OF ADHESIVES History of repair of rotator cuff LEFT Nausea and vomiting after administration of anesthetic agent Social History Current Living Situation: Alone Other Information That Helps Us Care for You: No Feels Safe at Home: Yes Safety Concerns: Feels Safe At This Time Smoking Status: Current every day smoker Tobacco Type: cigarettes Cigarettes per Day: HX OF 1PPD X30+ YEARS Do You Dip or Chew Tobacco: No Second Hand Exposure: No Tobacco Cessation Education Requested by Patient: No Hx Alcohol Use: No Hx Substance Use: No Beliefs That Will Affect Care: None Communication Ability: Effective Review of Systems All systems were reviewed and are negative except as per HPI Physical Exam Vital Signs (Past 24 Hours): Last Vital Signs Temp 39.1 C H 04/20/18 07:10 Pulse 94 H 04/20/18 07:10 Resp 18 04/20/18 07:10 BP 121/71 04/20/18 07:10 Pulse Ox 92 04/20/18 07:10 Constitutional: WD/WN, vitals as above comfortable; no acute distress Eyes: PERRL, conjunctivae normal, anicteric sclerae ENMT: external ear and nose normal, oropharynx normal Neck: trachea midline, no thyromegaly neck nontender Respiratory: normal respiratory effort, lungs clear to auscultation normal percussion; does not use accessory muscles Cardiovascular: Rate/Rhythm: regular rate and regular rhythm Heart Sounds: normal S1 and normal S2; no gallop, no murmur and no cardiac rub Vessels: normal peripheral pulses; no JVD Gastrointestinal (Abdomen): normal bowel sounds, soft, nontender, no hepatosplenomegaly Musculoskeletal: no cyanosis or clubbing, extremities motor strength 5/5 Spine: thoracic spine normal to inspection and lumbar spine normal to inspection; no cervical spinal tenderness Skin: no rashes, warm and dry normal turgor; no lesions Surgical site healing appropriately without evidence of infection Neurologic: patellar DTR's 2+ bilat, sensation intact no focal motor deficits Psychiatric: A+Ox3, euthymic affect Orientation: cooperative Lymphatic: no cervical or axillary lymphadenopathy no inguinal lymphadenopathy Results & Data Laboratory Results Short CBC 04/20/18 Range/Units 09:48 WBC 8.68 (4.8-10.8) K/uL Hgb 10.6 L (12.0-16.0) g/dL Hct 33.1 L (37-47) % Plt Count 309 (130-400) K/uL BMP 04/20/18 04/20/18 05:37 09:48 Sodium 137 Potassium 3.9 Chloride 106 Carbon Dioxide 26 BUN 8 Creatinine 0.98 1.04 Glucose 106 H Calcium 8.6 Liver Function 04/20/18 Range/Units 09:48 Total Bilirubin 0.4 (0.2-1) mg/dl Direct Bilirubin 0.1 (0-0.2) mg/dl AST 27 (15-37) U/L ALT 42 (12-78) U/L Alkaline Phosphatase 179 H (45-117) U/L Albumin 2.5 L (3.4-5.0) gm/dl Diagnostic Findings Microbiology 04/17/18 11:15 Urine,Indwelling Cath Urine Culture - Final No growth - less than 1,000 colonies/mL. 04/17/18 03:42 Blood Blood Culture - Preliminary No growth to date. 04/17/18 03:43 Blood Blood Culture - Preliminary No growth to date. CT chest wo con CT DOSE: 219.26 mGy.cm CLINICAL HISTORY: 63 years-old Female with post op fevers. Postoperative fever. Recent back surgery. TECHNIQUE: Multiaxial CT images of the chest were performed without contrast. A dose lowering technique was utilized adhering to the principles of ALARA. COMPARISON: Chest radiograph of same day. FINDINGS: Multinodular thyroid. Heart is normal in size without pericardial effusion. Mild degree of coronary arterial calcifications are noted. No thoracic aortic aneurysm. Trace pleural effusions. There is no pneumothorax. Mild bilateral bronchial wall thickening. Linear bibasilar subsegmental consolidative and groundglass densities. 2 mm solid nodule of the superior segment left lower lobe, likely benign. Minimal tree-in-bud nodules with groundglass densities of the superior segment left lower lobe. There is a linear subpleural 6 mm nodule about the right middle lobe on image 153 series 4 which favors a fissural lymph node. No suspicious pulmonary nodules or masses identified. The central airways appear patent. No lobar airspace consolidation. Suggestion of mild hepatic steatosis. No acute process of the imaged upper abdomen. Prior cholecystectomy. Soft tissues are unremarkable. Bones appear to be intact. IMPRESSION: 1. Trace bilateral pleural effusions with linear bibasilar subsegmental consolidation suggestive of probable atelectasis. 2. Minimal tree-in-bud nodules of the superior segment left lower lobe suggestive of infectious or inflammatory bronchiolitis. 3. Coronary arterial calcifications. 4. Prior cholecystectomy. Electronically signed by: Berto Chapman M.D. 04/17/2018 11:25 AM Dictated: 04/17/18 1116 Transcribed: 04/17/18 1116
--- NOTE | 2018-04-20 11:19 | Orthopedic Progress Note ---
Date of Service April 20, 2018 Assessment & Plan (1) Neurogenic claudication due to lumbar spinal stenosis: This time we will continue physical therapy. We will wait medicines and infections diseases opinion regarding the continued intermittent temperatures. Hopefully will be she will be okay to discharge home tomorrow. Present on Admission?: Yes Subjective Patient has no complaints today. She states her back pain is well controlled. Leg pain is improved. Physical Exam 2 Vital Signs (Past 24 Hours): Last Vital Signs Temp 39.1 C H 04/20/18 07:10 Pulse 94 H 04/20/18 07:10 Resp 18 04/20/18 07:10 BP 121/71 04/20/18 07:10 Pulse Ox 92 04/20/18 07:10 Physical Exam: Patient is ambulating halls. She is good strength testing. Incision is clean dry and intact. There is no drainage or erythema.
[2018-04-20] MEDS ORDERED: OPTIRAY 320 125ml IV PRN (12:08)
--- NOTE | 2018-04-20 12:30 | CT Scan Report ---
CT angio chest PE protocol CT DOSE: 777.34 mGy.cm HISTORY: Chest pain. Dyspnea. PE TECHNIQUE: Multiaxial CT images of the chest were performed following the intravenous administration of contrast to evaluate the pulmonary arteries. Maximal intensity projection images were also obtaine d. A dose lowering technique was utilized adhering to the principles of ALARA. COMPARISON STUDY: 04/17/2017 FINDINGS: Study is negative for pulmonary embolus. Pulmonary vasculature enhances appropriately. Mild mediastinal and hilar adenopathy. Mild stable card iomegaly. Lungs are grossly clear. Mild bibasilar deep and atelectatic change. IMPRESSION: 1. Study is negative for pulmonary embolus. 2. Lungs in general are clear with mild dependent bibasilar atelectasis. 3. Stable mild mediastinal and hilar adenopathy. The above report was generated using voice recognition software. It may contain grammatical, syntax or spelling errors. Electronically signed by: Abhijeet Roman M.D. 04/20/2018 12:29 PM
--- NOTE | 2018-04-20 12:53 | CT Scan Report ---
CT abd pelvis oral and IV con CLINICAL HISTORY: 63 years-old Female presenting with persistent fevers,elevated LFTs,L-spine surgery . TECHNIQUE: Multidetector CT of the abdomen and pelvis was performed after the administration of oral and intravenous contrast. IV contrast: 120 mL of Optiray 320. One or more dose lowering techniques we re used consistent with the principles of ALARA (as low as reasonably achievable), including automati c exposure control, mA or kV adjustment to individual patient size, and/or use of iterative reconstru ction. COMPARISON: None. CT DOSE (mGy.cm): The estimated cumulative dose is 777.34. FINDINGS: Construction Mgr topogram: Posterior lumbar fusion hardware. Lung bases: Normal heart size. No pericardial or pleural effusion. Minimal dependent changes likely a telectasis. Liver: Normal morphology. No liver lesion. Patent hepatic vasculature. Biliary: No intrahepatic or extrahepatic biliary ductal dilatation. Gallbladder surgically absent. Pancreas: Normal. Spleen: Normal. Adrenal glands: Normal. Kidneys and ureters: Normal. No hydronephrosis. Bladder: Gas noted along an anterior superior extension of the urinary bladder. This may either repre sent normal anterior bladder or a vesicourachal diverticulum. Gas may indicate the presence of recent catheterization. Wall thickening in this region is suggested. The remainder of the urinary bladder d oes not demonstrate abnormal wall thickening. Pelvic organs: Uterus and ovaries normal. Gas and hyperdense material noted in the vagina. Bowel: The appendix is absent. No bowel obstruction. Peritoneal cavity: No free fluid or intraperitoneal gas. Lymph nodes: No enlarged lymph nodes in the abdomen or pelvis. Vasculature: Aorta and IVC patent and normal in caliber. Abdominal wall: Mild body wall edema. Musculoskeletal: Postsurgical changes of posterior bilateral transpedicular screw and darien fixation of L4-5 with interbody spacer and laminectomy defects. Old screw tracks and S1 and an L5-S1 interbody s pacer also noted. Overlying surgical incision site without gross evidence of a fluid collection. IMPRESSION: 1. Gas within the urinary bladder may relate to catheterization. Correlate clinically. Wall thickeni ng of the anterior urinary bladder raises concern for cystitis, likely infectious. Underlying neoplas m is considered less likely though urologic consultation for possible cystoscopy is recommended given the asymmetry of bladder wall thickening. The configuration of the urinary bladder is most likely re lated to partial decompression though a vesicourachal diverticulum is difficult to exclude. Electronically signed by: Estevan Miranda M.D. 04/20/2018 12:52 PM
--- NOTE | 2018-04-20 16:17 | Hospitalist Progress Note ---
Date of Service April 20, 2018 Assessment & Plan (1) Fever: Continues with fevers now x 4 days, leukocytosis is resolved now, tachycardia comes on with fevers All Blood cultures remain no growth to date Urinalysis without evidence of infection and urine culture is negative CT Chest showed possible aspiration pneumonitis, received several days of Zosyn and continues to spike fevers has been on Vanco x 2 days and also continues with fevers It does not appear that she has any wound infection in fact her pain in the back is improved There is no evidence of DVT on exam and CTA Chest now neg for PE but shows some atelectasis CT chest scan suggest possible tree-in-bud opacities which would likely be consistent with an aspiration pneumonitis in the superior segment of the lower lobe. Patient has a long history she says of aspiration and has had a video swallow test it seemed and was recommended to have speech therapy which her insurance would not cover CTA Chest 04/[address] A/P only with gas in bladder likely 2/2 previous Ortiz, and thickening but UA and Ur cx negative, no urinary symptoms--> f/u with Urology as outpt for bladder wall thickening especially as she is a smoker CT A/P also showed debris in vagina that Radiologist said appears to be similar to GI contrast--> pelvic exam normal--> suspect given her profuse diarrhea after drinking po contrast prior to going for CT--> she had contamination into the vagina. She has no previous signs/symptoms of rectovaginal fistula Flu swab negative Procalcitonin neg x 2 days Most likely either drug reaction or atelectasis? -discontinue Zosyn and vancomycin -follow clinically but pt insists on going home tomorrow even if continues with fevers and will f/u with her PCP (2) Neurogenic claudication due to lumbar spinal stenosis: Patient had lumbar spinal surgery surgical site continues to improve Postoperative care as per orthopedic surgery (3) Rheumatoid arthritis: Patient typically takes Enbrel for rheumatoid arthritis however this is been on hold for 3 weeks-continue to hold -contiue Folic acid (4) Hyperlipidemia: Continue statin drug (5) Aspiration pneumonitis: Suspected, now seems to be resolved -dc Zosyn -dc IVFs (6) GERD (gastroesophageal reflux disease): Continue PPI (7) Anxiety: Continue clonazepam (8) HTN (hypertension), benign: Controlled -Continue verapamil (9) Acute respiratory failure with hypoxia: Was likely related to her aspiration pneumonitis and did have some wheezing on exam--> now resolved, off all O2 -continue albuterol nebs as needed (10) DVT prophylaxis: TEDs Disposition-remain on medical/surgical floor, possible dc to home tomorrow if all cultures remain no growth Subjective Pt has no complaints at all except she started having profuse diarrhea 3[address] drinking the po contrast. No blood, no abd pain. No headache or sore throat, has a mild cough. No CP or SOB, is weaned off O2. Continues to spike fevers. She had a CT C/A/P which only showed gas in bladder likely from Ortiz and debris in vagina. She denies any vaginal discharge, no vag bleeding. She is very anxious to get home. Review of Systems All systems reviewed & are unremarkable except as noted in HPI & below Physical Exam 2 Vital Signs (Past 24 Hours): Last Vital Signs Temp 38.0 C H 04/20/18 15:08 Pulse 90 04/20/18 15:08 Resp 17 04/20/18 15:08 BP 117/70 04/20/18 15:08 Pulse Ox 93 04/20/18 15:08 Constitutional: WD/WN, vitals as above Eyes: PERRL, conjunctivae normal, anicteric sclerae ENMT: external ear and nose normal, oropharynx normal Neck: trachea midline, no thyromegaly Respiratory: normal respiratory effort, lungs clear to auscultation Cardiovascular: RRR, no murmur, no edema Gastrointestinal (Abdomen): normal bowel sounds, soft, nontender, no hepatosplenomegaly Musculoskeletal: Extremities: extremities normal to inspection; no cyanosis and no clubbing Skin: no rashes, warm and dry (Dressing of the lower spine is clean dry and intact, no surrounding erythema) Neurologic: moves all extremities and awake; no focal motor deficits Psychiatric: A+Ox3, euthymic affect Genitourinary: Speculum/Bimanual Exam: normal bimanual exam (no tenderness, no vaginal or cervical masses palpable, uterus is small and mobile, no masses) Results & Data Laboratory Results 04/20/18 04/20/18 04/20/18 Range/Units 09:48 09:48 09:48 WBC 8.68 (4.8-10.8) K/uL RBC 3.45 L (4.2-5.4) M/uL Hgb 10.6 L (12.0-16.0) g/dL Hct 33.1 L (37-47) % MCV 95.9 (80-100) fL MCH 30.7 (25-34) pg MCHC 32.0 (32-36) g/dL RDW Std Deviation 49.4 H (36.4-46.3) fL RDW Coeff of August 14.0 (11.5-14.5) % Plt Count 309 (130-400) K/uL MPV 11.1 H (7.4-10.4) fL Immature Gran % (Auto) 0.6 % Neut % (Auto) 62.4 % Lymph % (Auto) 20.5 % [place] % (Auto) 12.1 % Eos % (Auto) 3.9 % Baso % (Auto) 0.5 % Immature Gran # (Auto) 0.05 H (0.00-0.02) K/uL Neut # (Auto) 5.42 (1.4-6.5) K/uL Lymph # (Auto) 1.78 (1.2-3.4) K/uL [place] # (Auto) 1.05 H (0.11-0.59) K/uL Eos # (Auto) 0.34 (0-0.5) K/uL Baso # (Auto) 0.04 (0-0.2) K/uL Sodium 137 (136-145) mmol/L Potassium 3.9 (3.5-5.1) mmol/L Chloride 106 (98-107) mmol/L Carbon Dioxide 26 (21-32) mmol/L Anion Gap 5.0 (3-11) BUN 8 (7-18) mg/dl Creatinine 1.04 (0.6-1.2) mg/dl Est Cr Clr Drug Dosing 48.9 ml/min Est GFR ( Amer) 65.3 Est GFR (Non-Af Amer) 56.3 BUN/Creatinine Ratio 7.5 L (10-20) Glucose 106 H (70-99) mg/dl Calcium 8.6 (8.5-10.1) mg/dl Total Bilirubin 0.4 (0.2-1) mg/dl Direct Bilirubin 0.1 (0-0.2) mg/dl AST 27 (15-37) U/L ALT 42 (12-78) U/L Alkaline Phosphatase 179 H (45-117) U/L Total Protein 6.1 L (6.4-8.2) gm/dl Albumin 2.5 L (3.4-5.0) gm/dl Procalcitonin 0.15 (0-0.5) ng/ml Influenza Type A (PCR) (Neg) Influenza Type B (PCR) (Neg) 04/20/18 04/19/18 Range/Units 05:37 19:50 WBC (4.8-10.8) K/uL RBC (4.2-5.4) M/uL Hgb (12.0-16.0) g/dL Hct (37-47) % MCV (80-100) fL MCH (25-34) pg MCHC (32-36) g/dL RDW Std Deviation (36.4-46.3) fL RDW Coeff of August (11.5-14.5) % Plt Count (130-400) K/uL MPV (7.4-10.4) fL Immature Gran % (Auto) % Neut % (Auto) % Lymph % (Auto) % [place] % (Auto) % Eos % (Auto) % Baso % (Auto) % Immature Gran # (Auto) (0.00-0.02) K/uL Neut # (Auto) (1.4-6.5) K/uL Lymph # (Auto) (1.2-3.4) K/uL [place] # (Auto) (0.11-0.59) K/uL Eos # (Auto) (0-0.5) K/uL Baso # (Auto) (0-0.2) K/uL Sodium (136-145) mmol/L Potassium (3.5-5.1) mmol/L Chloride (98-107) mmol/L Carbon Dioxide (21-32) mmol/L Anion Gap (3-11) BUN (7-18) mg/dl Creatinine 0.98 (0.6-1.2) mg/dl Est Cr Clr Drug Dosing 51.9 ml/min Est GFR ( Amer) 70.2 Est GFR (Non-Af Amer) 60.5 BUN/Creatinine Ratio (10-20) Glucose (70-99) mg/dl Calcium (8.5-10.1) mg/dl Total Bilirubin (0.2-1) mg/dl Direct Bilirubin (0-0.2) mg/dl AST (15-37) U/L ALT (12-78) U/L Alkaline Phosphatase (45-117) U/L Total Protein (6.4-8.2) gm/dl Albumin (3.4-5.0) gm/dl Procalcitonin (0-0.5) ng/ml Influenza Type A (PCR) Neg for Influ A (Neg) Influenza Type B (PCR) Neg for Influ B (Neg) BCxs NGTD
[2018-04-20] MEDS: ROSUVASTATIN CALCIUM 10 MG TAB PO SCH (20:20)
[2018-04-20] MEDS: DOCUSATE SODIUM/SENNA 50/8.6MG TAB PO SCH (21:36)
[2018-04-21] MEDS: ACETAMINOPHEN 1,000 MG/100 ML VIAL IV PRN (06:26)
[2018-04-21] MEDS: ONDANSETRON INJ 2 MG/ML 2 ML VIAL IV PRN (06:27)
[2018-04-21] MEDS: FOLIC ACID 1 MG TAB PO SCH (08:20)
[2018-04-21] MEDS: CHOLECALCIFEROL 1,000 UNITS TAB PO SCH (08:20)
[2018-04-21] MEDS: PANTOprazole 40 MG TAB PO SCH (08:20)
[2018-04-21] MEDS: VERAPAMIL HCL 40 MG TAB PO SCH (08:20)
[2018-04-21] MEDS: MAGNESIUM OXIDE 400 MG TAB PO SCH (08:20)
[2018-04-21] MEDS: MULTIVITAMIN TAB PO SCH (08:20)
[2018-04-21] MEDS: clonazePAM 1 MG TAB PO SCH (08:24)
[2018-04-21] MEDS: MODAFINIL 100 MG TAB PO SCH (08:24)
--- NOTE | 2018-04-21 10:49 | Discharge Summary ---
Date of Service April 21, 2018 Admission HPI Per Admitting Provider This is a 63-year-old female presents with chronic persistent back and leg pain. After failing extensive course of nonoperative care she would like to pursue surgical intervention. Principal Diagnosis Lumbar spinal stenosis with neurogenic claudication Discharge Data Allergies Allergy/AdvReac Type Severity Reaction Status Date / Time midazolam Allergy Unknown "HYPES ME Verified 04/16/18 10:17 UP" tetanus toxoid, adsorbed Allergy Unknown "ARM Verified 04/16/18 10:17 SWELLED AND FEVER" codeine AdvReac Unknown NAUSEA Verified 04/16/18 10:17 diazepam AdvReac Unknown "GET HYPER" Verified 04/16/18 10:17 melatonin AdvReac Unknown "KEEPS ME Verified 04/16/18 10:17 AWAKE" pseudoephedrine AdvReac Unknown "BP Verified 04/16/18 10:17 ELEVATED" acetaminophen AdvReac Nausea Verified 04/16/18 10:17 Consultations 04/16/18 16:40 Consult Case Management - Discharge Planning Routine 04/17/18 10:32 Consult Hospitalist Routine 04/20/18 09:17 Consult Infectious Diseases Routine Procedures Performed Operation Date: 02/12/18 07:45 <No data on this case meets the specified criteria> Operation Date: 04/16/18 11:25 Actual Procedures p L4-L5 Decompression and Fusion(Not Applicable) - Reddy Marcano DO s L5-S1 Removal of Hardware(Not Applicable) - Reddy Marcano DO Ordered Studies 04/16/18 09:35 FL fluoroscopy <1hr Routine FL lumbar spine 2-3V Routine 04/17/18 10:32 CT chest wo con Routine 04/20/18 09:22 CT abd pelvis oral and IV con Urgent CT angio chest PE protocol Routine Hospital Course (1) Lumbar stenosis with neurogenic claudication: Patient underwent lumbar decompression fusion tolerated as well as taken the orthopedic floor postoperatively. Postoperatively her leg symptoms markedly improved back pain improved throughout her stay. There was some concern regarding her intermittent temperatures and she was treated for pre-existing lung disease. This progressed and improved appropriately. Subsequently she was discharged home. Discharge orders and instructions from the chart for further review. Total Time Total Time Spent Total Time Spent (In Minutes): Not applicable Discharge Plan Discharge Items Patient Disposition: Home - Self-Care Reason For Visit: Spinal Stenosis Discharge Diagnosis: Lumbar spinal stenosis with neurogenic claudication Discharge Goals: Decrease discomfort Non-emergency contact: Primary Care Provider Call non-emergency contact if: you have any medication questions Follow-up/Referrals: Landen Galdamez [Primary Care Provider] - Diet: Regular Addtl Provider Instructions: ACTIVITY RECOMMENDATIONS: SELF CARE INSTRUCTIONS AFTER THORACIC/LUMBAR FUSIONS 1. You may walk to your tolerance. It is good exercise for your legs and back. Expect some back and intermittent leg aches and pains. 2. You may perform "counter-top" level activities (make a sandwich, kayleigh with a project, etc.). 3. No bending or lifting of more than 10 pounds or back twisting of any nature (roll like a log when turning in bed). 4. You may ride in a car for 20-30 minutes at a time. No driving until after your first visit with your doctor. 5. Frequent changes of position and restricting sitting to 30 minutes at a time will help limit the amount of back spasms and stiffness you may experience. 6. You may discontinue the use of ambulatory aids (cane, crutches, etc.) once your strength and confidence allow. 7. You may continuous improvement coach the shower and let water strike your incision when you arrive home at least once daily. Do not take a tub bath, sit in a hot tub or go into a swimming pool until after your first recheck in the office. SPECIAL CARE INSTRUCTIONS: VERY IMPORTANT TO READ AND REVIEW A. Your surgical incision has been closed with a cosmetic suture under the skin that will dissolve in about 6 weeks. In 14 days, you can use a pair of clean scissors and cut the suture that is left outside of the skin at the ends of your incision. 1. The small skin tapes can be removed 7 days after surgery if they have not fallen off by that point. 2. You may keep the wound open to air as much as possible to promote healing after post-op day number 5 unless told otherwise by your doctor. 3. If you think the wound looks like it is becoming infected (redness or worsening drainage) and/or you are experiencing fever, chill or worsening back pain and muscle spasms, contact the office so that we may evaluate you as soon as possible. B. Complications are uncommon, but please contact us if you have any signs or symptoms of: 1. wound infection (fever higher than 102.5 degrees F, redness, separation of wound, drainage, or increasing pain from the incision) 2. blood clots in legs (pain, swelling, redness and warmth in legs) 3. urinary tract infection (fever higher than 102.5 degrees F, burning upon urination or increased frequency of urination) 4. nerve problems (inability to walk on your toes or heels, numbness, loss of bowel or bladder control) 5. any other symptoms that concern you C. Please call the office at if you have any concerns or questions about your operation or recovery. D. No smoking! Smoking drastically decreases the chance of a solid fusion. E. Do not take any anti-inflammatory medications (Indocin, Advil, Motrin, Aspirin, Naprosyn, etc.) as these may inhibit the chance of a solid fusion. Tylenol is okay to take for pain. MANAGING PAIN AFTER SPINAL SURGERY 1. Narcotic medication is intended for short-term use and will be provided for surgical pain. Surgical pain usually lasts for a period of 4-6 weeks. Narcotic medication includes Percocet, Vicodin, Darvocet, Tylenol #3 or Lortab. 2. Longer-term pain is more appropriately treated with non-narcotic medication such as Tylenol ES. 3. Muscle spasm is not appropriately treated with narcotics. Muscle relaxers such as Soma, Flexeril or Skelaxin can be used along with Tylenol ES. 4. Remember that we all live with some "aches and pains". This is not unusual or uncommon after an injury or as we get older. a. Back pain is expected and may include muscle spasms for 4 to 6 weeks after surgery. The pain should gradually improve. If the pain worsens for no apparent reason, please contact the office. b. Intermittent leg pain may also be experienced and should not be concerned about unless it worsens for no apparent reason. If so, please contact the office. 5. We will provide appropriate medication within the normal guidelines of their prescribed use. We will also be very cautious and aware of potential abuse and extended duration of patients' medication needs. a. Pain medications are for your comfort and to assist with sleep and rest so that the tissue can heal. They are not provided in order to return to normal activity and should not be used through the day. To do so or worsening pain at night can result from ongoing tissue damage and development of tolerance to the prescribed medicine. 6. Please allow 2-3 days to process refills. Prescriptions will not be mailed but must be picked up at the office. FOLLOW UP VISIT: Keep your scheduled follow-up appointment. Any questions, please call the office at . Prescriptions: New tramadol 50 mg Tablet 50 mg PO Q4H PRN (Reason: Pain, Moderate) Qty: 30 RF: 0 oxycodone 5 mg Tablet 5 mg PO Q4H PRN (Reason: Pain, Severe) Qty: 30 RF: 0 Continued clonazepam 1 mg Tablet 1 mg PO BID RF: 0 esomeprazole magnesium [Nexium] 40 mg Capsule,Delayed Release(Dr/Ec) 40 mg PO QAM RF: 0 folic acid 1 mg Tablet 1 mg PO QAM RF: 0 modafinil 100 mg Tablet 200 mg PO QAM RF: 0 rosuvastatin [Crestor] 10 mg Tablet 10 mg PO HS RF: 0 Sulfa Crystals 1 dose PO DAILY RF: 0 etanercept [Enbrel SureClick] 50 mg/mL (0.98 mL) Pen Injector 50 mg subcut WK RF: 0 multivitamin Tablet 1 tab PO QAM RF: 0 potassium 99 mg Tablet 99 mg PO QAM RF: 0 cholecalciferol (vitamin D3) [Vitamin D3] 1,000 unit Tablet 1,000 unit PO QAM RF: 0 magnesium oxide 400 mg magnesium Tablet 400 mg PO QAM RF: 0 verapamil 80 mg Tablet 80 mg PO BID RF: 0 Stand-Alone Forms: [facility], [facility]/Other Patient Handouts: ED Stockings Mark Discharge Orders: Discharge Order (Routine); Ordered 04/21/18 Ordered By: Reddy Marcano Admission Data Admit Date/Time: 04/16/18 15:20 Attending Provider: Reddy Marcano Admit Provider: Reddy Marcano Primary Care Provider: Landen Galdamez Other Providers: Humberto Calle ; Maite Roman ; Terence Epps ; Priya Bañuelos ; Baldemar Marie ; Brock Duron ; Mauro Mcdermott ; Fredy Head ; Milan Leonard ; Sharron Treviño ; Jennifer Espinoza ; Kateryna Joiner ; Charlie Daley ; Dyana Dominguez ; Francisco Peguero ; Bony Tilley ; Ambrosio Ball ; Sydnee Dutton ; Bethany Moreno ; Michelle Rowland ; Kristina Amaya ; Jacek Cooper ; Bony Bahena ; Lenka Moreland ; Joe Rondon ; Lan Sims Service: Surgical Services Other Interventions: Discharge Summary Assessment (RN) Last Done: 04/21/18 09:14
[2018-04-21] MEDS ORDERED: VANCOMYCIN TROUGH ONE (21:30)
== END 2018-04-21 10:22 | disposition home or self-care (01) | DRG 453 ==
LOC: ASU 09:00 → 3E 15:20